=== PATIENT | female | born 1950 | race Caucasian/White ===

== ENCOUNTER 2017-02-27 22:11 | Inpatient (IN) | payer OTHER ==
[~2017-02-27] VITALS: Ht 162.6 cm; Wt 113.2 kg
[~2017-02-27 22:11] MED LIST: ACID REDUCER 1150 MG PO; B COMPLETE1 EACH PO; BENZONATATE100 MG PO; CEFTIN500 MG PO; CLARITIN-D 21 TABLET PO; CYANOCOBALAM1000 MCG PO; Calcium Carbonate,Ca PO; DAILY VALUE1 EACH PO; DICLOFENAC SODI75 MG PO; DuoNeb IH; FENOFIBRATE160 M1 PO; GLUCOPHAGE500 MG PO; GLUCOTROL10 MG PO; Habitrol,Nicoderm CQ TD; INVOKANA300 MG PO; JANUVIA100 MG PO; K-PHOS ORIGINA500 M1 PO; LEVAQUIN750 MG PO; LEVBID0.375 MG PO; LORTAB 5-325 M1 EACH PO; Lasix PO; Levaquin PO; MAGNESIUM100 MG PO; MAGNESIUM250 MG PO; Micro-K,K-Tab,K-Dur, PO; OMEPRAZOLE40 M1 PO; PERCOCET 5/31 TABLET PO; POTASSIUM GLUCO2 MEQ PO; POTASSIUM-9999 MG PO; PREDNISONE10 MG PO; SYMAX DUOTAB0.375 MG PO; Symbicort 160-4.5 mc IH; TRULICITY0.75 MG/0. SC; Victoza SC; Vitamin D PO; Voltaren XR PO; predniSONE PO
[2017-02-28 06:55] LABS: POINT-OF-CARE METER ID UU13113694
[2017-02-28 07:58] VITALS: BP 143/72
[2017-02-28 12:47] LABS: POINT-OF-CARE METER ID UU13113675; POINT-OF-CARE USER ID 515036437
[2017-02-28 15:51] VITALS: BP 169/85
[2017-02-28 19:13] VITALS: BP 147/79
[2017-03-01 00:30] VITALS: BP 128/56
[2017-03-01 03:57] VITALS: BP 115/68
[2017-03-01 07:52] VITALS: BP 112/54
[2017-03-01 11:40] LABS: POINT-OF-CARE METER ID UU14117124
[2017-03-01 15:31] VITALS: BP 131/64
[2017-03-01 21:09] LABS: POINT-OF-CARE METER ID UU14188577
[2017-03-02 00:16] VITALS: BP 116/70
[2017-03-02 07:35] VITALS: BP 133/71
== END 2017-03-02 12:40 | disposition home or self-care (01) | DRG 460 ==
LOC: ENRESERV 22:11 → 3EAST 02-28 06:21 → 2SOUTH 02-28 06:21 → SDC 02-28 08:19 → 2SOUTH 02-28 08:20 → EDSTATUS 02-28 08:20 → 2SOUTH 02-28 09:25 → ENRESERV 02-28 12:01 → 3EAST 02-28 15:29 → 2SOUTH 02-28 15:34 → 3EAST 03-02 12:40
PROVIDERS: Neurological Surgery
DX: M43.16 Spondylolisthesis, lumbar region (principal); E11.9 Type 2 diabetes mellitus without complications; E66.9 Obesity, unspecified; M48.06 Spinal stenosis, lumbar region; Z68.41 Body mass index [BMI] 40.0-44.9, adult
CPT/HCPCS: 72020; 76000; 82948; 86900; 86901; 94799; C1713; J0330; J0360; J1170; J1580; J1885; J2250; J2405; J2765; J3010; J3370; J3480; S0020